=== PATIENT | male | born 1965 | race Caucasian/White ===

== ENCOUNTER 2020-06-09 14:12 | Inpatient (IN) | payer BC ==
[~2020-06-09] VITALS: Ht 182.9 cm; Wt 111.6 kg
[2020-06-09 14:24] VITALS: Ht 182.9 cm; Wt 111.6 kg
[2020-06-09 14:56] LABS: BASOPHIL % 0.2 % (0.2-1.5); PLATELET COUNT 138 x10^3mcL (152-348)
[2020-06-09 15:50] LABS: CALCIUM 7.8 mg/dL (8.5-10.1); CARBON DIOXIDE 23.4 mmol/L (21-32); CHLORIDE SERUM 100 mmol/L (98-107); CREATININE SERUM 1.1 mg/dL (0.7-1.3); GFR1 > 60 mL/min; GLUCOSE SERUM 140 mg/dL (74-106); POTASSIUM SERUM 3.6 mmol/L (3.5-5.1); SODIUM SERUM 133 mmol/L (136-145)
[2020-06-09 15:54] LABS: ALKALINE PHOSPHATASE 37 U/L (46-116); ALT/SGPT 28 U/L (16-63); AST/SGOT 17 U/L (15-37)
[2020-06-09 15:56] LABS: ALBUMIN 2.6 g/dL (3.4-5.0); TOTAL PROTEIN, SERUM 5.9 g/dL (6.4-8.2)
[2020-06-09 18:24] LABS: PHOSPHOROUS 2.1 mg/dL (2.5-4.9)
[2020-06-09 19:00] LABS: CHOLESTEROL/HDL RATIO 4.1
[2020-06-09 20:03] LABS: microscopic required? NO
[2020-06-09 20:44] LABS: urine erythrocyte NEGATIVE (NEGATIVE)
[2020-06-09 22:18] VITALS: BP 111/54
[2020-06-10 05:23] VITALS: BP 114/62
[2020-06-10 08:07] LABS: BASOPHIL % 0.3 % (0.2-1.5); PLATELET COUNT 137 x10^3mcL (152-348); RED CELL DISTRIBUTION WIDTH 13.7 % (12.1-16.2)
[2020-06-10 08:50] LABS: CALCIUM 7.5 mg/dL (8.5-10.1); CARBON DIOXIDE 24.4 mmol/L (21-32); CHLORIDE SERUM 108 mmol/L (98-107); GFR1 > 60 mL/min; GLUCOSE SERUM 89 mg/dL (74-106); POTASSIUM SERUM 3.7 mmol/L (3.5-5.1); SODIUM SERUM 141 mmol/L (136-145)
[2020-06-10 12:10] VITALS: BP 112/62
[2020-06-10 12:32] VITALS: BP 99/53
[2020-06-10] MEDS ORDERED: OMEPRAZOLE40 M1 PO (13:09)
[2020-06-10] MEDS ORDERED: AMOXICILLIN500 MG PO (13:10)
[2020-06-10] MEDS ORDERED: CLARITHROMYCIN500 M1 PO (13:11)
[2020-06-10] MEDS ORDERED: FLAGYL500 MG PO (13:12)
[2020-06-10 15:31] LABS: BASOPHIL % 0.2 % (0.2-1.5); PLATELET COUNT 147 x10^3mcL (152-348); RED CELL DISTRIBUTION WIDTH 13.8 % (12.1-16.2)
[2020-06-10 16:04] VITALS: BP 105/50
[2020-06-10 17:14] VITALS: BP 107/49
[2020-06-10 20:50] VITALS: BP 107/48
[2020-06-11 05:15] VITALS: BP 108/53
[2020-06-11 07:29] LABS: BASOPHIL % 0.4 % (0.2-1.5); PLATELET COUNT 161 x10^3mcL (152-348); RED CELL DISTRIBUTION WIDTH 13.9 % (12.1-16.2)
[2020-06-11 08:06] LABS: CALCIUM 7.8 mg/dL (8.5-10.1); CARBON DIOXIDE 24.3 mmol/L (21-32); CHLORIDE SERUM 109 mmol/L (98-107); GFR1 > 60 mL/min; GLUCOSE SERUM 113 mg/dL (74-106); PHOSPHOROUS 2.2 mg/dL (2.5-4.9); POTASSIUM SERUM 3.6 mmol/L (3.5-5.1); SODIUM SERUM 142 mmol/L (136-145)
[2020-06-11 08:30] VITALS: BP 102/50
[2020-06-11] MEDS ORDERED: FERROUSAL325 MG PO (09:36)
[2020-06-11] MEDS ORDERED: COLACE100 MG PO (09:37)
[2020-06-11] MEDS ORDERED: FORTAMET1000 MG PO (12:54)
[2020-06-11 13:00] VITALS: BP 120/65
[2020-06-11] MEDS ORDERED: FREESTYLE LITE1 EAC1 MC (14:45)
[2020-06-11] MEDS ORDERED: FREESTYLE LANC1 EACH TOP (14:45)
[2020-06-11] MEDS ORDERED: FREESTYLE LITE1 EAC2 MC (14:45)
== END 2020-06-11 17:03 | disposition home or self-care (01) | DRG 377 ==
LOC: ED 14:12 → EDSEX 14:12 → DU 16:04
PROVIDERS: Internal Medicine Gastroenterology; Student in an Organized Health Care Education/Training Program; ADMIT Internal Medicine; ATTEND Internal Medicine
PROC: 0W3P8ZZ Control Bleeding in Gastrointestinal Tract, Via Natural or Artificial Opening Endoscopic (ICD-10-PCS; principal; 2020-06-10 09:30)
PROC: 0DB68ZX Excision of Stomach, Via Natural or Artificial Opening Endoscopic, Diagnostic (ICD-10-PCS; 2020-06-10 09:30)
DX: K26.4 Chronic or unspecified duodenal ulcer with hemorrhage (principal); E43 Unspecified severe protein-calorie malnutrition; E87.1 Hypo-osmolality and hyponatremia; D64.9 Anemia, unspecified; D69.6 Thrombocytopenia, unspecified; E11.65 Type 2 diabetes mellitus with hyperglycemia; Z20.822 Contact with and (suspected) exposure to COVID-19
CPT/HCPCS: 87046; 87046-59; C9113; G0378; J0171; J1200; J1610; J2250; J2310; J2916; J3010; J3480; J3490; J7030; J7040

== ENCOUNTER 2020-06-22 09:11 | Emergency (ER) | payer BC ==
[~2020-06-22] VITALS: Ht 167.6 cm; Wt 95.3 kg
[~2020-06-22 09:11] MED LIST: AMOXICILLIN500 MG PO; CLARITHROMYCIN500 M1 PO; COLACE100 MG PO; FERROUSAL325 MG PO; FLAGYL500 MG PO; FORTAMET1000 MG PO; FREESTYLE LANC1 EACH TOP; FREESTYLE LITE1 EAC1 MC; FREESTYLE LITE1 EAC2 MC; OMEPRAZOLE40 M1 PO
[2020-06-22 09:18] VITALS: Ht 167.6 cm; Wt 95.3 kg
[2020-06-22 12:07] VITALS: BP 116/64
== END 2020-06-22 12:07 | disposition home or self-care (01) ==
LOC: ED 09:11
DX: S93.401A Sprain of unspecified ligament of right ankle, initial encounter (principal); W01.0XXA Fall on same level from slipping, tripping and stumbling without subsequent striking against object, initial encounter; Y93.89 Activity, other specified; Y92.89 Other specified places as the place of occurrence of the external cause; Y99.8 Other external cause status